=== PATIENT | female | born 1950 | race American Indian/Alaskan Native ===

== ENCOUNTER 2018-07-13 09:23 | Day surgery (SDC) | payer MEDICARE, BC, OTHER ==
[~2018-07-13 09:23] MED LIST: ASPIRIN EC325 MG PO; CALCIUM + VITA1 EAC1 PO; CALCIUM + VITA1 EACH; CRUTCH1 EACH; DILANTIN100 MG PO; HYDROCODON-ACE1 EA11 PO; NAPROXEN375 MG PO; NAPROXEN500 MG PO; NORCO 5-325 TA1 EACH PO; PHENYTOIN SODI100 MG; PLAQUENIL200 MG PO; ZOFRAN4 MG PO; [UNRECOGNIZED DRUG - OTHER] PO
--- NOTE | 2018-07-13 11:38 | NUR ---
07/13/18 1138 Tracy Urbina 1131 PT ARRIVED IN PACU SLEEPY WITH NO C/O'S. ABD SOFT. 1138 OXYGEN DECREASED TO 1L VIA NC WITH SATS 100%.
--- NOTE | 2018-07-14 07:35 | OR ---
[facility] [address], [place] [address] Signed DATE OF OPERATION: 07/13/2018 SURGEON: Sarika Pleitez MD UPPER AND LOWER ENDOSCOPY REPORT PREOPERATIVE DIAGNOSES: 1. Esophageal dysphagia. 2. Nausea. 3. Gastroesophageal reflux disease. 4. Daughter of colon cancer at age 44. POSTOPERATIVE DIAGNOSES: 1. Mild diffuse gastritis. 2. Small hiatal hernia. 3. Distal esophageal candidiasis. 4. A 4 mm polyps x1 at cecum, 45 cm and 35 cm. 5. Moderate internal hemorrhoids. PROCEDURES: 1. EGD with CLOtest and biopsies of the antrum and GE junction. 2. Colonoscopy without biopsy. ESTIMATED BLOOD LOSS: None. INDICATIONS: Rossy is a 68-year-old female, who was asked to see me for both upper and lower endoscopy. She has had trouble swallowing her pills and feeling nauseated. She talks about acid reflux and thinks it is getting worse. She has never been evaluated previously. In addition, her 44-year-old daughter was diagnosed and of colon cancer. Rossy has never had a lower endoscopy. She has no lower GI complaints. In the office, I gave her pamphlets on both upper and lower endoscopy. We looked at those together along with the risks including, but not limited to gas bloating, crampy abdominal pain, bleeding, perforation, requiring surgery, and missed diagnosis. We also discussed the need for IV conscious sedation. She had expressed understanding and wished to proceed. PROCEDURE NOTE: Rossy was taken into our endoscopy suite and placed in the supine semi-recumbent Electronically Signed By: SARIKA PLEITEZ MD 07/14/18 0735 PATIENT NAME: ROSSY FERGUSON OPERATIVE REPORT DATE OF : 52 REPORT #: [id number] PHYSICIAN: SARIKA PLEITEZ MD PCP: SRIRAM VERDUZCO MD REPORT IS CONFIDENTIAL AND NOT TO BE RELEASED WITHOUT AUTHORIZATION [facility] [address], [place] [address] Signed position. The posterior oropharynx was anesthetized with Hurricaine spray. A bite block was utilized for the case. We used a total of 7 mg of Versed and 150 mcg of fentanyl to cover both upper and lower endoscopy. The adult gastroscope was introduced and advanced under direct visualization of camera into the third portion of the duodenum. The duodenum and pyloric channel were fine. She had very mild erythematous changes in the stomach, so we took a biopsy of the antrum for pathologic review as well as CLOtest. Upon retroflexion of the scope, she has a very small hiatal hernia. There were no gastric or esophageal varices. The scope was withdrawn up through the area of the GE junction, it was covered in white adherent material. We used copious amounts of irrigation and we never could get that removed and we scraped that and to us it looks like she probably has candidiasis. We went ahead and took 2 biopsies at the GE junction, but it was hard to see for sure because of the candidiasis. After that, the scope was slowly withdrawn. Her middle and upper esophagus were fine. Rossy was then rotated into the left lateral decubitus position. She was maintained on IV sedation with Versed and fentanyl. A digital rectal exam was performed and this was unremarkable. The adult colonoscope was introduced and advanced under direct visualization of the camera, it took some extra sedation and abdominal compression to get through Rossy's long redundant sigmoid and left colon. Eventually, made our way into the cecum itself. She had a little bilious fluid, but overall her prep was good. The scope was then slowly withdrawn. The above-mentioned polyps were easily removed with the help of hot biopsy forceps, there was no diverticulosis, the rectum was unremarkable. Upon retroflexion of the scope, she does have [id number] internal hemorrhoids. After this, the gas was suctioned out. The colonoscope was removed. Rossy tolerated the procedure quite well. RECOMMENDATIONS: I will see Rossy back in my office in 7 to 14 days to review her results. In the meantime, we will prescribe her nystatin swish and swallow for her esophageal candidiasis. Sarika Pleitez MD [facility] /[id number] Electronically Signed By: SARIKA PLEITEZ MD 07/14/18 0735 PATIENT NAME: ROSSY FERGUSON OPERATIVE REPORT DATE OF : 52 REPORT #: [id number] PHYSICIAN: SARIKA PLEITEZ MD PCP: SRIRAM VERDUZCO MD REPORT IS CONFIDENTIAL AND NOT TO BE RELEASED WITHOUT AUTHORIZATION [address] [address] Signed cc: MD Sriram Pugh MD Copies: SARIKA PLEITEZ MD, REX MD ~ Electronically Signed By: SARIKA PLEITEZ MD 07/14/18 0735 PATIENT NAME: ROSSY FERGUSON OPERATIVE REPORT DATE OF : 52 REPORT #: [id number] PHYSICIAN: SARIKA PLEITEZ MD PCP: SRIRAM VERDUZCO MD REPORT IS CONFIDENTIAL AND NOT TO BE RELEASED WITHOUT AUTHORIZATION
== END 2018-07-13 12:15 | disposition home or self-care (01) ==
LOC: DS 09:23 → OPS 09:23 → DS 10:30 → OPS 10:30
PROVIDERS: Colon & Rectal Surgery
PROC: 0DB38ZX Excision of Lower Esophagus, Via Natural or Artificial Opening Endoscopic, Diagnostic (ICD-10-PCS; 2018-07-13)
PROC: 0DB78ZX Excision of Stomach, Pylorus, Via Natural or Artificial Opening Endoscopic, Diagnostic (ICD-10-PCS; 2018-07-13)
PROC: 0DBH8ZX Excision of Cecum, Via Natural or Artificial Opening Endoscopic, Diagnostic (ICD-10-PCS; principal; 2018-07-13 10:30)
PROC: 0DBE8ZX Excision of Large Intestine, Via Natural or Artificial Opening Endoscopic, Diagnostic (ICD-10-PCS; 2018-07-13 10:30)
DX: Z12.11 Encounter for screening for malignant neoplasm of colon (principal); D12.6 Benign neoplasm of colon, unspecified; K63.5 Polyp of colon; K29.50 Unspecified chronic gastritis without bleeding; K21.0 Gastro-esophageal reflux disease with esophagitis; K64.8 Other hemorrhoids; K44.9 Diaphragmatic hernia without obstruction or gangrene; M19.90 Unspecified osteoarthritis, unspecified site; Z80.0 Family history of malignant neoplasm of digestive organs; Z79.899 Other long term (current) drug therapy
CPT/HCPCS: 86677; 88305; 99153; G0500; J2250; J3010; J7120

== ENCOUNTER 2019-03-18 20:19 | Emergency (ER) | payer MEDICARE, BC, OTHER ==
[~2019-03-18] VITALS: Ht 157.5 cm; Wt 71.2 kg
--- OUTSIDE RECORDS SUMMARY | ~2019-03-18 | XMS | Clinical Summary ---
Demographics + + + | Address | [address] | | | [place] [address] | + + + | Home Phone | | + + + | Preferred Language | Unknown | + + + | Marital Status | | + + + | Adventist Affiliation | 1076 | + + + | Race | Unknown | + + + | Ethnic Group | Unknown | + + + Author + + + | Author | [facility] | + + + | Organization | [facility] | + + + | Address | Unknown | + + + | Phone | Unavailable | + + + Support + + + + + | Name | Relationship | Address | Phone | + + + + + | Dany Ferguson | ECON | [address] | | | | | [place] | | | | | [address] | | + + + + + Care Team Providers + +------+ + | Care Logistics Lead Name | Role | Phone | + +------+ + | Vickie Kaplanjonathan Lombardoal | PP | | + +------+ + Allergies No Known Allergies Current Medications + + +--------+---------+------+------+-------+ | Prescription | Sig. | Disp. | Refills | Star | End | Statu | | | | | | t | Date | s | | | | | | Date | | | + + +--------+---------+------+------+-------+ | | Take 1-2 tablets by | | | | | Activ | | HYDROcodone-acetamin | mouth every 4 (four) | | | | | e | | ophen (NORCO) 5-325 | hours as needed for | | | | | | | MG per tablet | Pain (EVERY 4-6 HRS | | | | | | | | PRN). | | | | | | + + +--------+---------+------+------+-------+ | phenytoin | Take 400 mg by mouth | | | | | Activ | | (DILANTIN) 100 MG ER | every morning. | | | | | e | | capsule | | | | | | | + + +--------+---------+------+------+-------+ | amLODIPine | Take 1 tablet by | 30 | 0 | 08/2 | 12/3 | Activ | | (NORVASC) 5 MG | mouth daily. | tablet | | 12/29 | 11/28 | e | | tablet | | | | 15 | 19 | | + + +--------+---------+------+------+-------+ | Calcium | Take 1 tablet by | 60 | 11 | 05/2 | 05/2 | Activ | | Carb-Cholecalciferol | mouth 2 (two) times | tablet | | 02/26 | 02/26 | e | | (CALCIUM-VITAMIN D) | daily with meals. | | | 18 | 19 | | | 500-200 mg-unit per | | | | | | | | tablet | | | | | | | + + +--------+---------+------+------+-------+ | levETIRAcetam | Take 1/2 tab twice a | 60 | 5 | 12/ | | Activ | | (KEPPRA) 500 MG | day for 15 days, | tablet | | 11/28 | | e | | tabletIndications: | then take 1 tab | | | 18 | | | | Seizure disorder | twice a day | | | | | | | (HCC) | | | | | | | + + +--------+---------+------+------+-------+ Active Problems + + + | Problem | Noted Date | + + + | Other chest pain | 06/29/2015 | + + + | Seizure disorder (HCC) | 06/29/2015 | + + + | HTN (hypertension) | 06/29/2015 | + + + Encounters +--------+ + + + + | Date | Type | Specialty | Care Team | Description | +--------+ + + + + | 03/16/ | Office | | Lucila Rangel, | Seizure disorder | | 2018 | Visit | | MD | ([facility]) (Primary Dx); | | | | | | Driving safety issue | +--------+ + + + + | 12/23/ | Office | | Lucila Rangel, | Seizure disorder | | 2018 | Visit | | MD | ([facility]) (Primary Dx); | | | | | | Driving safety | | | | | | issue; Age-related | | | | | | osteoporosis without | | | | | | current | | | | | | pathological | | | | | | fracture | +--------+ + + + + | 12/21/ | Telephone | | Luicla Rangel, | Follow-up (schedule) | | 2018 | | | MD | | +--------+ + + + + from Last 3 Months Social History + +-------+ +--------+------+ | Tobacco Use | Types | Packs/Day | Years | Date | | | | | Used | | + +-------+ +--------+------+ | Never Smoker | | | | | + +-------+ +--------+------+ + +---+---+---+ | Smokeless Tobacco: | | | | | Never Used | | | | + +---+---+---+ + + +---------+ + | Alcohol Use | Drinks/We | oz/Week | Comments | | | ek | | | + + +---------+ + | No | | | | + + +---------+ + + + + | Sex Assigned at | Date Recorded | | | | + + + | Not on file | | + + + Last Filed Vital Signs + + + + | Vital Sign | Reading | Time Taken | + + + + | Blood Pressure | 173/82 | 03/16/2019 9:36 AM PDT | + + + + | Pulse | 66 | 03/16/2019 9:36 AM PDT | + + + + | Temperature | 36.8 C (98.3 F) | 06/30/2015 12:31 PM PDT | + + + + | Respiratory Rate | 16 | 06/30/2015 12:31 PM PDT | + + + + | Oxygen Saturation | 100% | 03/16/2019 9:36 AM PDT | + + + + | Inhaled Oxygen | - | - | | Concentration | | | + + + + | Weight | 71.2 kg (157 lb) | 03/16/2019 9:36 AM PDT | + + + + | Height | 160 cm (5' 3") | 03/16/2019 9:36 AM PDT | + + + + | Body Mass Index | 27.81 | 03/16/2019 9:36 AM PDT | + + + + Plan of Treatment +--------+---------+ + + + | Date | Type | Specialty | Care Team | Description | +--------+---------+ + + + | 07/28/ | Office | | Lucila Rangel, | | | 2019 | Visit | | MD Lizy Hubbard | | | | | | [place], [place] | | | | | | [address] | | | | | | | | +--------+---------+ + + + + + + + + | Health Maintenance | Due Date | Last Done | Comments | + + + + + | Vaccine: | | | | | Dtap/Tdap/Td (1 - | 0 | | | | Tdap) | | | | + + + + + | Breast Cancer | | | | | Screening | 1 | | | | (Mammogram) | | | | + + + + + | Colon Cancer | | | | | Screening | 1 | | | | (Colonoscopy) | | | | + + + + + | Vaccine: Zoster (1 | | | | | of 2) | 1 | | | + + + + + | Vaccine: | | | | | Pneumococcal 65+ | 6 | | | | Low/Medium Risk (1 | | | | | of 2 - PCV13) | | | | + + + + + | Vaccine: Influenza | | | | | (Season Ended) | 9 | | | + + + + + | DEXA SCAN SCREENING | | 10/05/2018 | | | | 0 | | | + + + + + Results Not on filefrom Last 3 Months Insurance + +--------+ +------+-------+ + | Payer | Benefi | Subscriber | Type | Phone | Address | | | t Plan | ID | | | | | | / | | | | | | | Group | | | | | + +--------+ +------+-------+ + | PREMER[employer] | PREMER | [id number] | | | [address] [address] | | | A BLUE | | | | [place] | | | [place] | | | | [address] | | | FED | | | | | | | PPO | | | | | + +--------+ +------+-------+ + | [employer] | YELLOW | [id number] | | | | | PLANS | [place] | | | | | + +--------+ +------+-------+ + + +--------+ +--------+ + + | Guarantor Name | Accoun | Relation to | Date | Phone | Billing Address | | | t Type | Patient | of | | | | | | | | | | + +--------+ +--------+ + + | ROSSY FERGUSON | Person | Self [birth year] | Home: | [address] | | | al/Fam | | 1949 | [phone] [place] [address] | | | anai | | | 1946 | | + +--------+ +--------+ + +
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
--- OUTSIDE RECORDS SUMMARY | ~2019-03-18 | XMS | Encounter Summary ---
Demographics + + + | Address | [address] | | | [place] [address] | + + + | Home Phone | | + + + | Preferred Language | Unknown | + + + | Marital Status | | + + + | Jehovah'S Witness Affiliation | 1076 | + + + | Race | Unknown | + + + | Ethnic Group | Unknown | + + + Author + + + | Author | [facility] | + + + | Organization | [facility] | + + + | Address | Unknown | + + + | Phone | Unavailable | + + + Support + + + + + | Name | Relationship | Address | Phone | + + + + + | Dany Hyde | ECON | [email or web address] | | | | | [place] | | | | | [address] | | + + + + + Care Team Providers + +------+ + | Care Matte Cutter Name | Role | Phone | + +------+ + | [facility], [facility] | PCP | | + +------+ + Reason for Visit + + + | Reason | Comments | + + + | Follow-up | schedule | + + + Encounter Details +--------+ + + + + | Date | Type | Department | Care Team | Description | +--------+ + + + + | 12/21/ | Telephone | [facility] | Lucila Rangel, | Follow-up (schedule) | | 2019 | | [facility] | [address] | | | | | [address] | [facility] | | | | | [place], [place] | [address] | | | | | [address] | | | | | | [phone] | | | +--------+ + + + + Social History + +-------+ +--------+------+ | Tobacco [...] on file | | + + + as of this encounter Plan of Treatment +--------+---------+ + + + | Date | Type | Specialty | Care Team | Description | +--------+---------+ + + + | 07/28/ | Office | Neurology | Lucila Rangel, | | | 2019 | Visit | | MD Lizy Hubbard | | | | | | [place] | | | | | | [address] | | | | | | | | +--------+---------+ + + + as of this encounter Visit Diagnoses Not on filein this encounter"
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
--- OUTSIDE RECORDS SUMMARY | ~2019-03-18 | XMS | Encounter Summary ---
Demographics + + + | Address | [address] | | | [place] [address] | + + + | Home Phone | | + + + | Preferred Language | Unknown | + + + | Marital Status | | + + + | Mandaen Affiliation | 1076 | + + + | Race | Unknown | + + + | Ethnic Group | Unknown | + + + Author + + + | Author | [facility] [employer] | + + + | Organization | [facility] [employer] | + + + | Address | Unknown | + + + | Phone | Unavailable | + + + Support + + + + + | Name | Relationship | Address | Phone | + + + + + | Dany Hyde | ECON | [address] | | | | | [place] | | | | | [address] | | + + + + + Care Team Providers + +------+ + | Care Manufacturing Systems Engineer Name | Role | Phone | + +------+ + | Clinic[facility]ora | PCP | | + +------+ + Reason for Visit + + + | Reason | Comments | + + + | Seizures | follow up | + + + Consult and Treat (Routine) + +--------+ + + + + | Status | Reason | Specialty | Diagnoses / | Referred By | Referred To | | | | | Procedures | Contact | Contact | + +--------+ + + + + | Authorized | | Neurology | Diagnoses | Clinic, | [place], | | | | | Epilepsy, | [facility] | MD Lucila | | | | | unspecified, | [place] [address] | | | | | not | [address] | Dr | | | | | intractable, | [place], | [place] | | | | | without | [place] [address] | [address] Phone: | | | | | status | Phone: | [phone] | | | | | epilepticus | [phone] | Fax: | | | | | ([facility]) | Fax: | [phone] | | | | | | [phone] | | + +--------+ + + + + Encounter Details +--------+---------+ + + + | Date | Type | Department | Care Team | Description | +--------+---------+ + + + | 03/16/ | Office | [facility] | Lucila Rangel, | Seizure disorder | | 2019 | Visit | [facility] | [address] | ([facility]) (Primary Dx); | | | | [address] | [place] | Driving safety issue | | | | [place] | [address] | | | | | [address] | | | | | | [phone] | | | +--------+---------+ + + + Social History [...] AM PDT | + + + + in this encounter Instructions Patient Instructions - Lucila Rangel MD - 03/16/2019 9:25 AM PDTContinue Keppra 500mg 1 tab twice a day Continue Dilantin 200mg every morning. Get fasting labs at your local doctor's office - Dilantin level and Keppra level Safety and legal instructions I explained to the patient that per [facility] law she should not to drive a vehicle or vessel of any kind, swim, bathe alone, boat, scuba, work on heights, operate heavy [employer] shelby or cook on open fire for six (6) months from any event of loss of consciousness, altered awareness or loss of body control. To treat osteoporosis, Alendronate as advised by PCP Continue vitamin D and calcium supplementation. in this encounter Progress Notes Lucila Rangel MD - 03/16/2019 9:25 AM PDTFormatting of this note may be different fro m the original. Subjective: Patient ID: Rossy Hyde is a 69 y.o. female. HPI The following portions of the patient's history were reviewed and updated as appropriate an d is available elsewhere in the record: allergies, current medications, past family history, past medical history, past social history, past surgical history and problem list. Rossy is a 69 yo lady who is here for follow [...] years. Was seen by a neurologist in [facility] - about 20 years ago. Has [...] - Bone density measurements consistent with osteoporosis. TODAY Taking Keppra 500mg twice a day Is also continuing Dictation on: 03/16/2019 10:13 AM by: LUCILA CRAWLEY [JUSTINE] No breakthrough seizures Current Outpatient Prescriptions: amLODIPine (NORVASC) 5 MG [...] , R fl: Review of Systems All other systems reviewed and negative except as mentioned in HPI Objective: Physical Exam BP 173/82 (BP Location: Right upper arm, Patient Position: Sitting) | Pulse 66 | Ht 1.6 m (5' 3") | Wt 71.2 kg (157 lb) | SpO2 100% | BMI 27.81 kg/m Elderly lady, neatly groomed, in NAD Focused neurological exam Alert, oriented, fluent speech. PERRL. EOMI. No nystagmus. Face symmetric. No pronator drift. No dysmetria on FNF Narrow based gait. RS -b/l breath sounds clear CV - S1S2 heard. No murmurs Assessment and Plan: Rossy Hyde is a 69-year-old lady with history of osteoarthritis and epilepsy, who is here for follow up. IMPRESSION Generalized seizure disorder - seizure free for over 30 years. Osteoporosis based on DEXA scan 09/2018 - may be due to postmenopausal state but also from Dilantin. No breakthrough seizures. RECOMMENDATIONS For seizure disorder, She is in the midst of transitioning from Dilantin to a newer AED. She has mild depression and sleepiness. Continue Keppra 500mg 1 tab twice a day Continue Dilantin 200mg every morning Get labs keppra and dilantin level (fasting) near her house. Will be notified if she has to change dosing. Plan to increase Keppra if not therapeutic. Dilantin will be gradually taper ed over 2 months. Safety and legal instructions I explained to the patient that per [facility] law she should not to drive a vehicle or vessel of any kind, swim, bathe alone, boat, scuba, work on heights, operate heavy [employer] or cook on open fire for six (6) months from any event of loss of consciousness, altered awareness or loss of body control. To treat osteoporosis, Continue Alendronate as advised by PCP Continue vitamin D and calcium supplementation. Plan to follow up in 4 months or sooner if she has any acute neurological concerns. in this encounter Plan of Treatment +--------+---------+ + + + | Date | Type | Specialty | Care Team | Description | +--------+---------+ + + + | 07/28/ | Office | Neurology | Lucila Rangel, | | | 2019 | Visit | | MD Lizy Hubbard | | | | | | [address] [place] | | | | | | [address] | | | | | | | | +--------+---------+ + + + + +--------+ + + | Name | Priori | Associated Diagnoses | Order Schedule | | | ty | | | + +--------+ + + | Dilantin (phenytoin) level, total | Routin | Seizure disorder | Expected: | | | e | ([facility]) | 03/16/2019, Expires: | | | | | 03/16/2020 | + +--------+ + + | Keppra | Routin | Seizure disorder | Expected: | | | e | ([facility]) | 03/16/2019, Expires: | | | | | 03/16/2020 | + +--------+ + + as of this encounter Visit Diagnoses + + | Diagnosis | + + | Seizure disorder (HCC) - Primary | + + | Unspecified epilepsy without mention of intractable epilepsy | + + | Driving safety issue | + + | Other specified personal history presenting hazards to health | + +
[2019-03-18] MEDS ORDERED: DILANTIN100 MG PO (21:12)
[2019-03-19] MEDS ORDERED: NORVASC2.5 MG PO (00:36)
--- NOTE | 2019-03-19 07:16 | EKG ---
[facility] [address] [place], [place] [address] Signed Normal sinus rhythm Normal ECG No previous ECGs available Confirmed by CLARENCE HAMMOND MD ([id number]) on 03/19/2019 7:16:49 AM Electronically Signed By: CLARENCE HAMMOND MD 03/19/19 0716 PATIENT NAME: KAREN FERGUSON Electrocardiogram DATE OF : 52 PHYSICIAN: CLARENCE HAMMOND MD REPORT #: [id number] REPORT IS CONFIDENTIAL AND NOT TO BE RELEASED WITHOUT AUTHORIZATION
== END 2019-03-19 00:42 | disposition home or self-care (01) ==
LOC: ED 20:19
DX: I10 Essential (primary) hypertension (principal); Z90.49 Acquired absence of other specified parts of digestive tract; Z79.899 Other long term (current) drug therapy
CPT/HCPCS: 36415; 80053; 84484; 85025; 93005; 93010; 99283-25

== ENCOUNTER 2021-09-25 06:10 | Day surgery (SDC) | payer BC, OTHER ==
[~2021-09-25] VITALS: Ht 157.5 cm; Wt 72.7 kg
[~2021-09-25 06:10] MED LIST changes: +NORVASC2.5 MG PO
--- NOTE | 2021-09-25 07:47 | NUR ---
09/25/21 0747 Ayaz Wood RESPONDS TO TAP AND VOICE AT 0745. DOES NOT ANSWER QUESTIONS. SCRATCHES NOSE.FALLS ASLEEP EASILY.
--- NOTE | 2021-09-25 08:37 | NUR ---
HAS RETURNED PACU. STATES SLEEPY. DOESNT WANT TO OPEN EYES OR TALK. MUCH ENCOURAGMENT TO GET RESPONSE. CALL LIGHT IN L HAND.
[2021-09-25] MEDS ORDERED: HYDROCODON-ACE1 EA10 PO (09:40)
--- NOTE | 2021-09-25 10:26 | NUR ---
[id number]: PT USES CALL LIGHT TO NOTIFY RN OF URGE TO VOID. PT DENIES DIZZINESS OR NAUSEA WHEN SITTING AT SIDE OF BED. RN ASSIST TO BATHROOM WITH STEADY GAIT. PT ABLE TO VOID APPROX 100 MLS LIGHT RED URINE. PT PROVIDED MESH PANTIES AND CANDICE PAD. BACK TO DS RM 4 TO GET DRESSED. SPOUSE, RADHA CALLED FOR SAFE RIDE HOME. [id number]: INTO RM 6 TO GIVE DC INSTRUCTIONS, PT VERBALIZES AN UNDERSTANDING. PAIN PRESCRIPTION PROVIDED TO PT IN DC PACKET. PT DC FROM DS RM 6 VIA WC TO SPOUSE WAITING IN PARKING LOT TO HOME.
--- NOTE | 2021-10-06 08:54 | OR ---
[facility] [place] [facility] [address] [place], [place] [address] Signed DATE OF OPERATION: 09/25/2021 SURGEON: Brenna Jama MD PREOPERATIVE DIAGNOSIS: Postmenopausal bleeding. POSTOPERATIVE DIAGNOSIS: Postmenopausal bleeding, possible endometrial polyps. PROCEDURE: Hysteroscopy, resection of endometrial polyps. ANESTHESIA: General MAC. ESTIMATED BLOOD LOSS: Minimal. DRAINS: None. INDICATIONS AND FINDINGS: The patient is a 71-year-old female who has had some recent abnormal bleeding. Patient is a very poor historian. Ultrasound revealed some irregularities to the endometrial cavity as well as some fluid within the cavity. At the time of surgery, exam under anesthesia revealed a normal-size uterus with no adnexal masses. The cavity sounded to 7 cm. The cavity was primarily atrophic, but with some irregularity in the low posterior fundal area. DESCRIPTION OF PROCEDURE: The patient was prepped and draped in the dorsal lithotomy position. A weighted speculum was placed. The anterior lip of the cervix was visualized and grasped with a single-tooth tenaculum. The cavity was then sounded to 7 cm. The cervix was easily dilated to a #8 dilator. The MyoSure device was then placed. The cavity was evaluated and the decision was made to proceed with resection of the posterior fundal area. The MyoSure Lite was introduced and this irregular area was serially resected. There was no evidence of significant bleeding. Following this, the procedure was terminated. The instruments removed from the cervix and uterus. The tenaculum was removed. There was no evidence of ongoing bleeding. The patient was taken to recovery room in good Electronically Signed By: BRENNA JAMA MD 10/06/21 0854 PATIENT NAME: KAREN FERGUSON OPERATIVE REPORT DATE OF : 52 REPORT #: [id number] PHYSICIAN: BRENNA JAMA MD PCP: DILAN JOSEPH MD REPORT IS CONFIDENTIAL AND NOT TO BE RELEASED WITHOUT AUTHORIZATION [facility] [address] [place], [place] [address] Signed condition. All sponge and needle counts were correct. She tolerated procedure well. Brenna Jama MD PJW/RAKANL /[id number] cc: Lora Copies: ~ Electronically Signed By: BRENNA JAMA MD 10/06/21 0854 PATIENT NAME: KAREN FERGUSON OPERATIVE REPORT DATE OF : 52 REPORT #: [id number] PHYSICIAN: BRENNA JAMA MD PCP: DILAN JOSEPH MD REPORT IS CONFIDENTIAL AND NOT TO BE RELEASED WITHOUT AUTHORIZATION
== END 2021-09-25 09:57 | disposition home or self-care (01) ==
LOC: DS 06:10
PROVIDERS: ATTEND Obstetrics & Gynecology
PROC: 0UDB8ZZ Extraction of Endometrium, Via Natural or Artificial Opening Endoscopic (ICD-10-PCS; principal; 2021-09-25 06:45)
DX: N95.0 Postmenopausal bleeding (principal); N84.0 Polyp of corpus uteri; E66.9 Obesity, unspecified; Z88.6 Allergy status to analgesic agent
CPT/HCPCS: 00952; J1100; J1885; J2250; J2405; J2704; J2765; J3010; J7121

== ENCOUNTER 2022-05-16 07:05 | Day surgery (SDC) | payer BC, OTHER ==
[~2022-05-16] VITALS: Ht 157.5 cm; Wt 70.5 kg
[~2022-05-16 07:05] MED LIST changes: +HYDROCODON-ACE1 EA10 PO; +KEPPRA500 MG PO
--- NOTE | 2022-05-16 08:27 | NUR ---
05/16/22 0827 Althea Black 0822- PT ARRIVES TO PACU NONAROUSABLE TO STIMULI WITH AN OPA IN PLACE. RESP EVEN AND UNLABORED. OXYGEN SAT HIGH 90'S TO 100% ON 10L VIA MASK. 0824- OXYGEN TITRATED DOWN TO 6L VIA MASK.
--- NOTE | 2022-05-21 07:16 | OR ---
[facility] [address] [place], [place] [address] Signed DATE OF OPERATION: 05/16/2022 SURGEON: Sarika Pleitez MD PREOPERATIVE DIAGNOSES: 1. Personal history of colonic polyps in 2018. 2. Small internal hemorrhoids. 3. Daughter with colon cancer at age 38. POSTOPERATIVE DIAGNOSIS: Small to moderate sized internal hemorrhoids. PROCEDURE: Colonoscopy without biopsy. ESTIMATED BLOOD LOSS: None. INDICATIONS: Rossy is a 72-year-old female, asked to see me for followup colonoscopy. There is mention of a colonoscopy back in 2010. I helped with upper and lower endoscopy in 2018. We did remove two adenomatous polyps at that time. She also had small internal hemorrhoids. We asked her to follow up in 5 years. In the meantime, her young daughter, who is autistic, she was diagnosed and of colon cancer at age 38. Rossy has no lower GI complaints. She did undergo hysteroscopy for her postmenopausal bleeding. In the office, I gave Rossy a pamphlet on colonoscopy. We reviewed the nature of that test along with the risks including, but not limited to gas bloating, crampy abdominal pain, bleeding, perforation requiring surgery, and missed diagnosis. We also reviewed the need for monitored anesthesia care given her daily need for hydrocodone. She had expressed understanding and wished to proceed. PROCEDURE NOTE: Rossy was taken into our endoscopy suite and placed in the left lateral decubitus position. She was given monitored anesthesia care with propofol per our nurse textile slitting machine operator. A digital rectal exam was performed and this was unremarkable. She had good sphincter tone and really nothing in the way of external hemorrhoids. Her anal canal is very short. The adult colonoscope had been introduced and advanced under direct visualization of the camera. She is very small and slight . Therefore, her sigmoid colon is a bit narrow. It took just a few minutes to travel through the sigmoid colon and then we got into the left colon and we traveled around to Electronically Signed By: SARIKA PLEITEZ MD 05/16/22 1158 Electronically Signed By: SARIKA PLEITEZ MD 05/21/22 0723 PATIENT NAME: ROSSY FERGUSON OPERATIVE REPORT DATE OF : 52 REPORT #: [id number] PHYSICIAN: SARIKA PLEITEZ MD PCP: DILAN JOSEPH MD REPORT IS CONFIDENTIAL AND NOT TO BE RELEASED WITHOUT AUTHORIZATION [facility] [address] [place], [place] [address] Signed the cecum without difficulty. Her prep was quite excellent. We could easily see the appendiceal orifice and ileocecal valve. The scope was then slowly withdrawn. There was no pathology throughout the entire colon or rectum. Once in the rectum, the scope was retroflexed and she has small to moderate sized internal hemorrhoid columns. After this, the gas was suctioned out and the colonoscope removed. Rossy tolerated the procedure quite well. RECOMMENDATIONS: Rossy can follow up in 5 years for repeat colonoscopy. Sarika Pleitez MD ALB/MODL /[id number] cc: MD Dilan Pugh MD Copies: SARIKA PLEITEZ MD, JAMES MD ~ Electronically Signed By: SARIKA PLEITEZ MD 05/16/22 1158 Electronically Signed By: SARIKA PLEITEZ MD 05/21/22 0723 PATIENT NAME: ROSSY FERGUSON OPERATIVE REPORT DATE OF : 52 REPORT #: [id number] PHYSICIAN: SARIKA PLEITEZ MD PCP: DILAN JOSEPH MD REPORT IS CONFIDENTIAL AND NOT TO BE RELEASED WITHOUT AUTHORIZATION
== END 2022-05-16 09:10 | disposition home or self-care (01) ==
LOC: DS 07:05 → OPS 07:05
PROVIDERS: ATTEND Colon & Rectal Surgery
PROC: 0DJD8ZZ Inspection of Lower Intestinal Tract, Via Natural or Artificial Opening Endoscopic (ICD-10-PCS; principal; 2022-05-16 08:15)
DX: Z12.11 Encounter for screening for malignant neoplasm of colon (principal); K64.0 First degree hemorrhoids; G40.909 Epilepsy, unspecified, not intractable, without status epilepticus; K21.9 Gastro-esophageal reflux disease without esophagitis; I10 Essential (primary) hypertension; M06.9 Rheumatoid arthritis, unspecified; Z88.6 Allergy status to analgesic agent; Z87.898 Personal history of other specified conditions; F11.10 Opioid abuse, uncomplicated; Z87.19 Personal history of other diseases of the digestive system; Z80.0 Family history of malignant neoplasm of digestive organs
CPT/HCPCS: G0105; J2704; J7121